=== PATIENT | male | born 1995 | race African-American/Black ===

== ENCOUNTER 2018-05-17 21:14 | Emergency (ER) | payer SELFPAY ==
[~2018-05-17] VITALS: Ht 177.8 cm; Wt 82.0 kg
[2018-05-17] MEDS ORDERED: ACETAMINOPHEN 325MG TABLET PO STA (22:38)
[2018-05-17 23:18] LABS: *AMPHETAMINES SCREEN URINE NEGATIVE (NEGATIVE); *BARBITURATES SCREEN URINE NEGATIVE (NEGATIVE); *BENZODIAZEPINES SCREEN URINE NEGATIVE (NEGATIVE); *COCAINE SCREEN URINE NEGATIVE (NEGATIVE); METHADONE URINE SCREEN NEGATIVE (NEGATIVE)
[2018-05-17 23:19] LABS: CANNABINOID URINE SCREEN NEGATIVE (NEGATIVE); OPIATES URINE SCREEN NEGATIVE (NEGATIVE); PHENCYCLIDINE URINE SCREEN NEGATIVE (NEGATIVE)
[2018-05-17 23:27] LABS: BASOPHILS % 1.5 % (0.0-2.0); EOSINOPHILS % 2.8 % (0.0-5.0); HEMATOCRIT. 41.9 % (42.0-52.0); LYMPHOCYTES % 45.8 % (20.0-50.0); MEAN PLATELET VOLUME 7.2 fl (7.4-10.4); MONOCYTES % 11.3 % (2.0-8.0); NEUTROPHILS % 38.6 % (40.0-76.0); PLATELET 368 x1000/uL (130-400); RED BLOOD CELL COUNT 5.17 mill/uL (4.7-6.1); RED CELL DISTRIBUTION WIDTH 13.6 % (11.6-14.6)
[2018-05-17 23:30] LABS: CHLORIDE 102 mEq/L (98-107)
[2018-05-17 23:37] LABS: ETHANOL BLOOD < 10 mg/dL
[2018-05-18 00:23] LABS: INR 1.1; PROTHROMBIN TIME 11.5 sec (9.1-11.1)
[2018-05-18 01:28] VITALS: BP 119/78
== END 2018-05-18 01:28 | disposition home or self-care (01) ==
LOC: ER 21:14
DX: T50.901A Poisoning by unspecified drugs, medicaments and biological substances, accidental (unintentional), initial encounter (principal); F32.9 Major depressive disorder, single episode, unspecified; F41.9 Anxiety disorder, unspecified; Y92.9 Unspecified place or not applicable
CPT/HCPCS: 36415; 80053; 80305; 83880; 84484; 85025; 85610; 93005; 99285; G0482

== ENCOUNTER 2018-05-27 18:36 | Emergency (ER) | payer SELFPAY ==
[~2018-05-27] VITALS: Ht 177.8 cm; Wt 79.0 kg
[2018-05-27 18:45] VITALS: BP 122/58
[2018-05-27 19:59] LABS: BASOPHILS % 1.1 % (0.0-2.0); EOSINOPHILS % 1.5 % (0.0-5.0); HEMATOCRIT. 43.3 % (42.0-52.0); HEMOGLOBIN. 15.4 g/dL (14.0-18.0); LYMPHOCYTES % 39.9 % (20.0-50.0); MEAN CORPUSCULAR HEMOGLOBIN 29.2 pg (28.0-32.0); MEAN CORPUSCULAR VOLUME 82.3 fL (80.0-94.0); MEAN PLATELET VOLUME 7.2 fl (7.4-10.4); MONOCYTES % 8.8 % (2.0-8.0); NEUTROPHILS % 48.7 % (40.0-76.0); PLATELET 343 x1000/uL (130-400); RED BLOOD CELL COUNT 5.26 mill/uL (4.7-6.1); RED CELL DISTRIBUTION WIDTH 13.7 % (11.6-14.6)
[2018-05-27 20:02] LABS: CHLORIDE 100 mEq/L (98-107)
== END 2018-05-27 21:18 | disposition left against medical advice (07) ==
LOC: ER 18:36
DX: R51 Headache (principal); Z53.21 Procedure and treatment not carried out due to patient leaving prior to being seen by health care provider
CPT/HCPCS: 36415; 80053; 85025